=== PATIENT | female | born 1970 | race African-American/Black ===

== ENCOUNTER 2019-07-04 12:48 | Emergency (ER) | payer BC, MEDICAID ==
[~2019-07-04] VITALS: Ht 172.7 cm; Wt 67.0 kg
[2019-07-04 15:48] VITALS: BP 147/92
[2019-07-04] MEDS: IBUPROFEN 600MG TABLET PO STA (15:48)
== END 2019-07-04 16:11 | disposition home or self-care (01) ==
LOC: ER 12:48
DX: J06.9 Acute upper respiratory infection, unspecified (principal); J02.9 Acute pharyngitis, unspecified; Z88.5 Allergy status to narcotic agent
CPT/HCPCS: 99283